=== PATIENT | female | born 1990 | race Caucasian/White ===

== ENCOUNTER 2016-07-24 15:38 | Emergency (ER) | payer MEDICAID, OTHER ==
[2016-07-24 15:43] VITALS: BP 127/92; PULSE 95; RESP 18; TEMP 98.4; O2SAT 99
--- NOTE | 2016-07-24 15:58 | EDPHY ---
H & P Time Seen by Provider: 07/24/16 15:44 HPI/ROS: CHIEF COMPLAINT: Left lateral ankle pain HISTORY OF PRESENT ILLNESS: 26-year-old female complaining of acute left lateral ankle pain after she rolled her foot earlier today while walking on an incongruent he. She is able to bear weight albeit with pain. No paresthesia no sensory motor deficit. PHYSICAL EXAM (Prior to examination, patient consented to physical exam, hands were washed and my usual and customary physical exam procedures followed) 1) GENERAL: Well-developed, well-nourished, alert and oriented. 2) HEAD: Normocephalic 3) HEENT: Pupils equal, round, reactive to light bilaterally. 4) LUNGS: Breathing comfortably. 5) MUSCULOSKELETAL: Tender to palpation left lateral malleolus. proximal tibia and fibula nontender .5th MT nontender negative Bolden test, compartments soft 6) SKIN: intact. 7) VASCULAR: DP,PT pulses and cap refill present and brisk DIFFERENTIAL DIAGNOSIS: in no particular order including but not limited to fracture, sprain, compartment syndrome Xray of the Left ankle interpreted by myself: no definitive acute osseous abnormality Procedure: Crutches indications for crutch use discussed with patient. Patient fitted for crutches by ER staff. Observed ambulating with crutches. I think the patient has the capacity to safely use crutches. Usual and customary crutch walking precautions provided Procedure: Splint A [[place] boot splint was applied by ER radiation technician. After application of the splint I returned and re-examined the patient. The splint was adequately immobilizing the joint and distal to the splint the patient's circulation and sensation were intact. Patient shows no signs of compartment syndrome. Was given orthopedic precautions. Smoking Status: Never smoked Constitutional: Initial Vital Signs Temperature (C) 36.9 C 07/24/16 15:39 Heart Rate 95 07/24/16 15:39 Respiratory Rate 18 07/24/16 15:39 Blood Pressure 127/92 H 07/24/16 15:39 O2 Sat (%) 99 07/24/16 15:39 O2 Delivery Mode Room Air Allergies/Adverse Reactions: cephalexin monohydrate [From Keflex] Allergy (Verified 07/24/16 15:38) Home Medications: Medication Instructions Recorded Control Pill 07/24/16 Hydrocodone/APAP 5/325 [[place] 1 tab PO Q6 PRN #7 tab 07/24/16 5/325 (RX)] Ibuprofen [Motrin (*)] 800 mg PO Q6 #15 tab 07/24/16 MDM/Departure - [facility] ED Course/Re-evaluation: Serial examinations performed. No evidence of compartment syndrome. She is neurovascularly intact. Usual and customary orthopedic precautions and instructions provided. - Depart Disposition: Home, Routine, Self-Care Clinical Impression: Left lateral ankle sprain Condition: Good Instructions: Ankle Sprain (ED) Additional Instructions: Return to the ER immediately if you experience discoloration, have worsening pain, numbness, tingling, or any other symptoms that concern you. If you received x-rays in the emergency department today, be advised, that ligamentous , tendon, muscular, and other non-bony injury cannot be fully ruled out. Try to keep your affected extremity elevated above the level of your chest, and keep cold packs on the affected area, for the next 48 hours. Prescriptions: Hydrocodone/APAP 5/325 [[place] 5/325 (RX)] 1 tab PO Q6 PRN #7 tab PRN Reason: Pain, Severe Ibuprofen [Motrin (*)] 800 mg PO Q6 #15 tab Referrals: Nikos Norieag MD [Medical Doctor] - 1-2 days without fail
== END 2016-07-24 16:42 | disposition home or self-care (01) ==
DX: S93.402A Sprain of unspecified ligament of left ankle, initial encounter (principal); X58.XXXA Exposure to other specified factors, initial encounter; Y99.8 Other external cause status; Y93.01 Activity, walking, marching and hiking
CPT/HCPCS: L4386

== ENCOUNTER 2017-10-17 11:44 | Emergency (ER) | payer MEDICAID ==
[2017-10-17 11:49] VITALS: BP 113/66
[2017-10-17] MEDS ORDERED: TDAP ADULT 0.5 ML INJ (BOOSTRIX) IM ONE (12:03)
--- NOTE | 2017-10-17 12:10 | EDPHY ---
H & P Time Seen by Provider: 10/17/17 11:55 HPI/ROS: CHIEF COMPLAINT: Laceration right index finger HISTORY OF PRESENT ILLNESS: 27-year-old female presents to the emergency department with laceration to her right index finger. Patient states last evening she was trying to move a Fridge and there was a piece of [place] metal that cut her right index finger. She immediately cleansed the wound. She presents emergency department today for tetanus shot. Denies any other trauma or injury. She is right-hand dominant. ROS: Denies numbness or tingling in her fingers, retained foreign body. Past Medical/Surgical History: Negative Social History: Single, works as a property damage claims adjustor Smoking Status: Never smoked Physical Exam: On examination the patient has a 1 cm laceration to the distal, palmar aspect of the right index finger. The laceration does not extend into the D IP joint. There is no nail avulsion noted. No palpable bony tenderness. Full range of motion of his fingers. Constitutional: Initial Vital Signs Temperature (C) 36.8 C 10/17/17 11:46 Heart Rate 74 10/17/17 11:46 Respiratory Rate 18 10/17/17 11:46 Blood Pressure 113/66 10/17/17 11:46 O2 Sat (%) 97 10/17/17 11:46 O2 Delivery Mode Room Air Allergies/Adverse Reactions: cephalexin monohydrate [From Keflex] Allergy (Verified 10/17/17 11:49) Home Medications: Medication Instructions Recorded Kacie 10/17/17 MDM/Departure - MDM Medications Given: Discontinued Medications Diphtheria/Tetanus/Acell Pertussis (Boostrix) 0.5 ml IM .ONCE ONE Stop: 10/17/17 12:04 Last Admin: 10/17/17 12:08 Dose: 0.5 ml ED Course/Re-evaluation: 27-year-old female presents to the emergency department with right index finger laceration. I do not think sutures are required. The wound is also over 12 hr old. Her tetanus shot was updated. She was given wound care precautions. Wound was gently cleansed with some water and bacitracin and dressing applied. - Depart Disposition: Home, Routine, Self-Care Clinical Impression: Laceration of right index finger Qualifiers: Encounter type: initial encounter Damage to nail status: without damage Foreign body presence: without foreign body Qualified Code(s): S61.210A - Laceration without foreign body of right index finger without damage to nail, initial encounter Condition: Good Instructions: Tdap and Td Vaccines for Adults (ED), Acute Wounds (ED) Additional Instructions: Your given a tetanus shot today. Please document this for your records. Return if you notice any signs or symptoms of infection such as redness, swelling, increased pain, fever, purulent drainage. Referrals: Dominic Addison MD [Primary Care Provider] - As per Instructions
== END 2017-10-17 12:15 | disposition home or self-care (01) ==
DX: S61.210A Laceration without foreign body of right index finger without damage to nail, initial encounter (principal); Z23 Encounter for immunization; W26.8XXA Contact with other sharp object(s), not elsewhere classified, initial encounter; Y99.8 Other external cause status; Y93.D3 Activity, furniture building and finishing

== ENCOUNTER 2018-02-16 10:27 | Emergency (ER) | payer MEDICAID ==
--- NOTE | 2018-02-16 10:58 | EDPHY ---
H & P Stated Complaint: cough, fever Time Seen by Provider: 02/16/18 10:54 - Personal History LMP (Females 10-55): Extended Cycle BCP/Inj Current Tetanus/Diphtheria Vaccine: Yes Current Tetanus Diphtheria and Acellular Pertussis (TDAP): Yes - Medical/Surgical History Hx Asthma: Yes Hx Chronic Respiratory Disease: No Hx Diabetes: No Hx Cardiac Disease: No Hx Renal Disease: No Hx Cirrhosis: No Hx Alcoholism: No Hx HIV/AIDS: No Hx Splenectomy or Spleen Trauma: No Other PMH: asthma, - Social History Smoking Status: Never smoked Constitutional: Initial Vital Signs Temperature (C) 37.1 C 02/16/18 10:45 Heart Rate 87 02/16/18 10:45 Respiratory Rate 16 02/16/18 10:45 Blood Pressure 111/80 02/16/18 10:45 O2 Sat (%) 97 02/16/18 10:45 O2 Delivery Mode Room Air Allergies/Adverse Reactions: cephalexin monohydrate [From KeOntodia] Allergy (Verified 02/16/18 10:44) Home Medications: Medication Instructions Recorded Kacie 10/17/17 Ibuprofen 02/16/18 Mucinex 02/16/18 Medical Decision Making ED Course/Re-evaluation: CHIEF COMPLAINT: Sore throat and fever HISTORY OF PRESENT ILLNESS: The patient is a 28 y/o female with a history of asthma complaining of a sore throat and fever onset night, 4 days ago. The fevers are typically at night and associated with body aches. She took Mucinex for her symptoms and does not have any nasal congestion. No headache, cough, chest pain, shortness of breath, abdominal pain, urinary or bowel complaints, numbness or paresthesias. REVIEW OF SYSTEMS: A comprehensive 10 system review of systems is otherwise negative aside from the elements mentioned in the history of present illness and medical decision making. PHYSICAL EXAM: HR, BP, O2 Sat, RR. Temp noted General Appearance: Alert, well hydrated, appropriate, and non-toxic appearing. Head: Atraumatic without scalp tenderness or obvious injury Eyes: Pupils equal, round, reactive to light and accommodation, EOMI, no trauma , no injection. Ears: Clear bilaterally, no perforation, normal landmarks Nose: Atraumatic, no rhinorrhea, clear. Throat: Oropharyngeal erythema with exudates, no lesions, normal tonsils, mucus membranes moist. Neck: Supple, 2+ carotid upstroke, nontender, no lymphadenopathy. Respiratory: No retractions, no distress, no wheezes, and no accessory muscle use. Lungs are clear to auscultation bilaterally. Cardiovascular: Regular rate and rhythm, no murmurs, rubs, or gallops. Bilateral carotid, radial, dorsalis pedis, and posterior tibial pulses intact. Good capillary refill all extremities. Gastrointestinal: Abdomen is soft, nontender, non-distended, no masses, no rebound, no guarding, no peritoneal signs. Musculoskeletal: Normal active ROM of all extremities, atraumatic. Neurological: Alert, appropriate, and interactive. The patient has normal DTRs and non-focal cranial nerves, motor, sensory, and cerebellar exam. Skin: No rashes, good turgor, no nodules on palpation. Past medical history: Asthma Past surgical history: Denies Family history: Denies Social history: Lives in [place], single, self-employed DIAGNOSTICS/PROCEDURES/CRITICAL CARE TIME: Not indicated. DIFFERENTIAL DIAGNOSIS: The differential diagnosis for the patient's fever included but was not limited to bacterial pharyngitis, pneumonia, urinary tract infection, viral syndrome, meningitis, and sepsis. MEDICAL DECISION MAKING: The patient is a 28 y/o female with a history of asthma complaining of a sore throat and fever onset night, 4 days ago. On exam she has oropharyngeal erythema with exudates. Her symptoms are consistent with bacterial pharyngitis. 40mg PO Prednisone and 500mg PO Keflex administered. 1105: Reassessed patient and discussed Keflex prescription. She reports that when she was 7 years old she had a nose bleed after taking Keflex. I do not believe she has a true allergy to Keflex. Return precautions provided; patient is comfortable with this plan. Departure - Departure Disposition: Home, Routine, Self-Care Clinical Impression: Bacterial pharyngitis Condition: Good Instructions: Pharyngitis (ED) Additional Instructions: 1. Take Keflex as prescribed. 2. Follow-up with your primary doctor within 72 hours. 3. Return to the Emergency Department for high fever, difficulty swallowing, difficulty tolerating liquids, neck pain or stiffness, shortness of breath or other concerns. 4. Use Tylenol and/or ibuprofen as directed for pain. 5. Drink plenty of fluids. Referrals: Dominic Addison MD [Primary Care Provider] - As per Instructions Report Scribed for: Nikhil Dior Report Scribed by: Eun Kraft Date of Report: 02/16/18 Time of Report: 10:57
[2018-02-16] MEDS ORDERED: CEPHALEXIN 500 MG CAP PO ONE (11:03)
[2018-02-16] MEDS ORDERED: predniSONE 20 MG TAB PO ONE (11:03)
[2018-02-16 11:37] VITALS: BP 111/65
== END 2018-02-16 11:38 | disposition home or self-care (01) ==
DX: J02.9 Acute pharyngitis, unspecified (principal); J45.909 Unspecified asthma, uncomplicated
CPT/HCPCS: J7512